=== PATIENT | female | born 1980 | race Caucasian/White ===

== ENCOUNTER 2016-12-25 08:28 | Emergency (ER) | payer OTHER ==
[2016-12-25 08:43] VITALS: BP 151/91
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
== END 2016-12-25 09:28 | disposition home or self-care (01) ==
LOC: ER 08:28
DX: J01.90 Acute sinusitis, unspecified (principal)